=== PATIENT | male | born 1995 | race Hispanic/Latino ===

== ENCOUNTER → 2017-08-22 | Day surgery (SDC) | payer SELFPAY ==
[~2017-08-22] MED LIST: ACETAMINOPHEN 1000 MG/100 ML IV ONE; CEFAZOLIN SOD 1 GM VIAL ONE; DESFLURANE 240 ML BTL INH ONE; DEXAMETHASONE SOD PHOS INJ 4 MG/ML VIAL ONE; EPINEPHRINE HCL INJ 1 MG/ML AMP ONE; FENTANYL CITRATE/PF 100MCG/2 ML INJ ONE; GLYCOPYRROLATE INJ 1MG/ 5 ML SYR ONE; LIDOCAINE HCL 1% LOCAL INJ 20 ML VIAL ONE; LIDOCAINE HCL 2% JELLY 5 ML TUBE ONE; LIDOCAINE HCL 2% LOCAL INJ 5 ML SDV VIAL INJ ONE; MIDAZOLAM HCL 2 MG/2 ML VIAL ONE; MUPIROCIN 2% OINT 22 GM TUBE ONE; NEOSTIGMINE 5 MG/5ML SYR ONE; ONDANSETRON HCL INJ 2 MG/ML VIAL ONE; PROPOFOL IV EMULSION 10 MG/ML 20 ML VIAL ONE; ROCURONIUM BROMIDE 10 MG/ML 5ML VIAL ONE
--- NOTE | 2017-08-22 10:50 | Operative Report ---
DATE OF PROCEDURE: PREOPERATIVE DIAGNOSIS: Gynecomastia, bilateral. POSTOPERATIVE DIAGNOSIS: Gynecomastia, bilateral. PROCEDURE: Correction of bilateral gynecomastia with suction-assisted lipectomy and direct excision. ANESTHESIA: General. HISTORY: The patient is a 21-year-old male who complains of bilateral gynecomastia. There is a combination of excess subcutaneous fat as well as breast tissue underneath the nipple-areola complex. The risks, benefits, and alternatives of treatment were discussed with the patient and he has signed the [employer] [place] consent forms. DESCRIPTION OF PROCEDURE: Patient was marked preoperatively in the holding area in the upright position. He is brought to the operating theater, and after the induction of adequate general anesthesia, he is prepped and draped in a supine position, a time out is performed. The procedure is begun by making small incisions to allow the subcutaneous tissues to be tumesced. At this point, the tumescent fluid which is the standard [place] formula is infiltrated into the subcutaneous space of each breast, approximately 500 mL is instilled on both sides. After awaiting an appropriate amount of time for maximum vasoconstrictive effect, the subcutaneous fat is suctioned using a combination of 3-mm Rima-Jessee cannulas, followed by 2-mm Rima-Jessee cannulas in a cross-hatched fashion to allow maximum tissue redraping. The suctioning on the right side yields approximately 275 mL of aspirate and the left side yields approximately 250 mL of aspirate. At this point, palpation of the nipple-areola complex reveals that there is still some lobular breast tissue underneath each complex. An incision is made in the lower hemisphere of each areola at the border of the areola and the skin, and with a 15-blade through the skin and subcutaneous tissue, bleeding is controlled using the electrocautery. The incision is deepened through the subcutaneous layer until the breast tissue is identified. At this point, the nipple-areola complexes are reflected superiorly and the gynecomastia is excised using the electrocautery. Care is taken to ensure that approximately 1 cm of tissue remains beneath the nipple-areola complex to prevent sinking in of the tissues. Once this is performed, the incisions are then closed. The areolar incision is closed with 3-0 Monocryl in an interrupted buried fashion, followed by 4-0 Monocryl running subcuticular stitch. The suction sites are closed with 5-0 chromic sutures in an interrupted fashion. Steri-Strips are applied to the incisions. Sterile bulking conforming bandages are applied over each chest and then the patient is placed in a postsurgical compressive garment vest. The estimated blood loss for procedure is 25 to 50 mL. He tolerated the procedure well, is brought to recovery room in satisfactory condition and discharged with a postoperative instruction sheet as well as a followup appointment. Job#: [id number]
== END | disposition home or self-care (01) ==
LOC: OR 05:16
PROVIDERS: ATTEND Plastic Surgery
DX: N62 Hypertrophy of breast (principal)
CPT/HCPCS: 15877; J0171; J0690; J1100; J2001 ×3; J2250; J2405; J3490